=== PATIENT | female | born 1990 | race Caucasian/White ===

== ENCOUNTER → 2019-09-15 | Outpatient (CLI) | payer OTHER ==
[~2019-09-15] MED LIST: AMOX500 PO; HYDACE5 PO; IBUP800 PO; METR70GEL VAG; MUPI2TC TOP; OXYACE5T PO
== END | disposition home or self-care (01) ==
LOC: LAB SHORT 15:24 → LAB EV 15:24
DX: N39.0 Urinary tract infection, site not specified (principal)
CPT/HCPCS: 87077; 87086; 87186

== ENCOUNTER → 2020-01-23 | Outpatient (CLI) | payer OTHER ==
[2020-01-25 06:09] LABS: CHLAMYDIA TRACHOMATIS, NAA Negative (Negative); NEISSERIA GONORRHOEAE, NAA Negative (Negative)
== END ==
LOC: LAB 12:25 → LAB SHORT 12:25 → LAB FUT 01-22 11:40
PROVIDERS: Registered Nurse Community Health
DX: Z34.80 Encounter for supervision of other normal pregnancy, unspecified trimester (principal)
CPT/HCPCS: 87491; 87591

== ENCOUNTER → 2020-07-14 | Outpatient (CLI) | payer OTHER | LOC: LAB SHORT 13:54 → LAB UCHC 13:54 | DX: Z34.83 Encounter for supervision of other normal pregnancy, third trimester (principal); Z53.20 Procedure and treatment not carried out because of patient's decision for unspecified reasons | CPT/HCPCS: 87081; 87653 ==

== ENCOUNTER → 2023-07-03 | Outpatient (CLI) | payer OTHER ==
[~2023-07-03] MED LIST changes: +MAGCHL64ER; +PRENA1 TRUE CO1 EAC1 PO
[2023-07-03 17:10] LABS: Adenovirus F 40/41 Not Detected (NOT DETECT); Astrovirus Not Detected (NOT DETECT); Campylobacter Sp Not Detected (NOT DETECT); Cryptosporidium Not Detected (NOT DETECT); Cyclospora Cayetanensis Not Detected (NOT DETECT); E. Coli O157 Not Detected (NOT DETECT); Entamoeba Histolytica Not Detected (NOT DETECT); Enteroaggregative E. coli-EAEC Not Detected (NOT DETECT); Enteropathogenic E. coli-EPEC Not Detected (NOT DETECT); Enterotoxigenic E. coli-ETEC Not Detected (NOT DETECT); Giardia Lamblia Not Detected (NOT DETECT); Norovirus GI/GII Not Detected (NOT DETECT); Plesiomonas Shigelloides Not Detected (NOT DETECT); Rotavirus A Not Detected (NOT DETECT); Salmonella Sp Not Detected (NOT DETECT); Sapovirus Not Detected (NOT DETECT); Shiga Toxin-prod E. coli-STEC Not Detected (NOT DETECT); Shigella/Enteroin E. coli-EIEC Not Detected (NOT DETECT); Vibrio Cholerae Not Detected (NOT DETECT); Vibrio Sp Not Detected (NOT DETECT); Yersinia Enterocolitica Not Detected (NOT DETECT)
== END | disposition home or self-care (01) ==
LOC: LAB 14:07 → LAB SHORT 14:07
PROVIDERS: Nurse Practitioner Family
DX: R63.5 Abnormal weight gain (principal)
CPT/HCPCS: 87507

== ENCOUNTER → 2024-07-08 | Outpatient (CLI) | payer OTHER ==
[2024-07-08 12:50] LABS: Source, Urine Clean Catch
[2024-07-08 14:34] LABS: Appearance, Urine Clear (Clear); Bilirubin, Urine Neg (Neg); Blood, Urine Neg (Neg); Glucose Qualitative, Urine Neg (Neg); Ketones, Urine Neg (Neg); Leukocyte Esterase, Urine Neg (Neg); Nitrite, Urine Neg (Neg); Protein, Urine Neg (Neg); Urobilinogen, Urine NORM (Normal)
[2024-07-08 14:35] LABS: Color, Urine Pale Yellow (P-Yellow)
== END ==
LOC: LAB 12:48 → LAB SHORT 12:48
PROVIDERS: Registered Nurse Community Health
DX: Z34.91 Encounter for supervision of normal pregnancy, unspecified, first trimester (principal)
CPT/HCPCS: 81003; 87086

== ENCOUNTER → 2024-07-09 | Outpatient (CLI) | payer OTHER ==
[2024-07-09 14:36] LABS: BASOPHILS ABSOLUTE AUTO 0.03 K/mm3 (0.00-0.23); BASOPHILS PERCENT AUTO 1 % (0-2); EOSINOPHILS ABSOLUTE AUTO 0.07 K/mm3 (0.00-0.68); EOSINOPHILS PERCENT AUTO 1 % (0-6); Hematocrit 35.5 % (33.0-51.0); Hemoglobin 12.2 g/dL (11.5-16.0); IMMATURE GRAN ABSOLUTE AUTO 0.01 K/mm3 (0.00-0.10); IMMATURE GRAN PERCENT AUTO 0 % (0-1); LYMPHOCYTES ABSOLUTE AUTO 1.65 K/mm3 (0.84-5.20); LYMPHOCYTES PERCENT AUTO 25 % (21-46); MONOCYTES ABSOLUTE AUTO 0.27 K/mm3 (0.16-1.47); MONOCYTES PERCENT AUTO 4 % (4-13); Mean Corpuscular HGB 29.8 pg (26.0-34.0); Mean Corpuscular HGB Conc 34.4 g/dL (31.5-36.5); Mean Corpuscular Volume 87 fL (80-100); Mean Platelet Volume 9.4 fL (9.1-12.4); NEUTROPHILS PERCENT AUTO 69 % (41-73); Platelet Count 304 K/mm3 (150-400); RDW Coefficient Variation 12.3 % (11.7-14.2); RDW Standard Deviation 39.3 fL (35.1-46.3); White Blood Cell Count 6.53 K/mm3 (4.00-11.30)
[2024-07-11 08:16] LABS: HEPATITIS B SURFACE ANTIGEN Negative (Negative)
[2024-07-11 09:05] LABS: HIV 1,2 COMBO ANTIGEN/ANTIBODY Negative (Negative)
[2024-07-11 12:10] LABS: HEPATITIS C AB CIA INTERP Negative (Negative); HEPATITIS C ANTIBODY CIA INDEX <0.02 IV
[2024-07-11 20:17] LABS: APTIMA MEDIA TYPE Urine; C. TRACHOMATIS BY TMA Negative (Negative); N. GONORRHOEAE BY TMA Negative (Negative); SPECIMEN SOURCE Urine
== END | disposition home or self-care (01) ==
LOC: LAB 10:28 → LAB SHORT 10:28
PROVIDERS: Registered Nurse Community Health
DX: Z34.91 Encounter for supervision of normal pregnancy, unspecified, first trimester (principal)
CPT/HCPCS: 84443; 86803; 87340; 87389; 87491; 87591

== ENCOUNTER → 2024-08-15 | Outpatient (CLI) | payer OTHER ==
[2024-08-15 14:31] LABS: BASOPHILS ABSOLUTE AUTO 0.01 K/mm3 (0.00-0.23); BASOPHILS PERCENT AUTO 0 % (0-2); EOSINOPHILS ABSOLUTE AUTO 0.08 K/mm3 (0.00-0.68); EOSINOPHILS PERCENT AUTO 1 % (0-6); Hematocrit 33.8 % (33.0-51.0); Hemoglobin 11.9 g/dL (11.5-16.0); IMMATURE GRAN ABSOLUTE AUTO 0.03 K/mm3 (0.00-0.10); IMMATURE GRAN PERCENT AUTO 0 % (0-1); LYMPHOCYTES ABSOLUTE AUTO 1.64 K/mm3 (0.84-5.20); LYMPHOCYTES PERCENT AUTO 21 % (21-46); MONOCYTES ABSOLUTE AUTO 0.37 K/mm3 (0.16-1.47); MONOCYTES PERCENT AUTO 5 % (4-13); Mean Corpuscular HGB 30.2 pg (26.0-34.0); Mean Corpuscular HGB Conc 35.2 g/dL (31.5-36.5); Mean Corpuscular Volume 86 fL (80-100); Mean Platelet Volume 8.9 fL (9.1-12.4); NEUTROPHILS ABSOLUTE AUTO 5.77 K/mm3 (1.96-9.15); NEUTROPHILS PERCENT AUTO 73 % (41-73); Platelet Count 349 K/mm3 (150-400); RDW Coefficient Variation 12.6 % (11.7-14.2); RDW Standard Deviation 39.3 fL (35.1-46.3); Red Blood Cell Count 3.94 M/mm3 (3.80-5.20)
[2024-08-15 15:51] LABS: Percent Saturation 32.2 % (15.0-50.0)
== END | disposition home or self-care (01) ==
LOC: LAB 12:37 → LAB SHORT 12:37
PROVIDERS: Registered Nurse Community Health
DX: O99.012 Anemia complicating pregnancy, second trimester (principal)
CPT/HCPCS: 82728; 83540; 83550; 85025

== ENCOUNTER → 2024-11-11 | Outpatient (CLI) | payer OTHER ==
[2024-11-11 15:35] LABS: Hematocrit 31.5 % (33.0-51.0)
== END | disposition home or self-care (01) ==
LOC: LAB SHORT 14:39 → LAB 14:39
PROVIDERS: Registered Nurse Community Health
DX: Z34.93 Encounter for supervision of normal pregnancy, unspecified, third trimester (principal)
CPT/HCPCS: 82950; 85014; 85018

== ENCOUNTER → 2025-01-02 | Outpatient (CLI) | payer OTHER | LOC: LAB 14:59 → LAB SHORT 14:59 | DX: Z34.93 Encounter for supervision of normal pregnancy, unspecified, third trimester (principal) | CPT/HCPCS: 87081; 87150 ==

== ENCOUNTER 2025-01-20 02:06 | Inpatient (IN) | payer OTHER ==
[2025-01-20] VITALS (17 sets, daily range): BP systolic 109–149; BP diastolic 49–100
[~2025-01-20] VITALS: Ht 152.4 cm; Wt 81.3 kg
[2025-01-20] MEDS ORDERED: Azithromycin 500 MG in NS 250 ML IV SCH ×2 (03:05→03:15)
[2025-01-20] MEDS ORDERED: Lactated Ringer's 1,000 ML IV SCH (03:05)
[2025-01-20] MEDS ORDERED: CeFAZolin Sodium 2,000 MG in NS 100 ML IV SCH (03:05)
[2025-01-20] MEDS ORDERED: FERSU300 PO (03:15)
[2025-01-20] MEDS ORDERED: Metoclopramide HCl 5MG / ML 2ML Vial IV ONE ×2 (03:30→03:55)
[2025-01-20] MEDS ORDERED: Citric Acid/Sodium Citrate 30 ML BTL PO ONE (03:30)
[2025-01-20 03:32] LABS: BASOPHILS ABSOLUTE AUTO 0.02 K/mm3 (0.00-0.23); BASOPHILS PERCENT AUTO 0 % (0-2); EOSINOPHILS ABSOLUTE AUTO 0.05 K/mm3 (0.00-0.68); EOSINOPHILS PERCENT AUTO 1 % (0-6); Hematocrit 34.8 % (33.0-51.0); Hemoglobin 12.5 g/dL (11.5-16.0); IMMATURE GRAN ABSOLUTE AUTO 0.03 K/mm3 (0.00-0.10); IMMATURE GRAN PERCENT AUTO 0 % (0-1); LYMPHOCYTES ABSOLUTE AUTO 1.59 K/mm3 (0.84-5.20); LYMPHOCYTES PERCENT AUTO 15 % (21-46); MONOCYTES ABSOLUTE AUTO 0.51 K/mm3 (0.16-1.47); MONOCYTES PERCENT AUTO 5 % (4-13); Mean Corpuscular HGB 32.7 pg (26.0-34.0); Mean Corpuscular HGB Conc 35.9 g/dL (31.5-36.5); Mean Corpuscular Volume 91 fL (80-100); Mean Platelet Volume 8.9 fL (9.1-12.4); NEUTROPHILS ABSOLUTE AUTO 8.15 K/mm3 (1.96-9.15); NEUTROPHILS PERCENT AUTO 79 % (41-73); Platelet Count 262 K/mm3 (150-400); RDW Coefficient Variation 12.7 % (11.7-14.2); RDW Standard Deviation 42.2 fL (35.1-46.3); Red Blood Cell Count 3.82 M/mm3 (3.80-5.20); White Blood Cell Count 10.35 K/mm3 (4.00-11.30)
[2025-01-20] MEDS ORDERED: Metoclopramide HCl 5MG / ML 2ML Vial ONE (03:40)
[2025-01-20] MEDS ORDERED: Citric Acid/Sodium Citrate 30 ML BTL PO SCH (03:55)
[2025-01-20 04:05] LABS: Albumin, Blood 2.8 g/dL (3.4-5.0); Albumin/Globulin Ratio 0.7 (0.8-1.8); Bilirubin, Total 0.3 mg/dL (0.1-1.0); Bun/Creatinine Ratio 17.9 (12.0-20.0); Calcium, Blood 9.2 mg/dL (8.5-10.1); Creatinine, Blood 0.5 mg/dL (0.40-1.00); Globulin, Blood 3.8 g/dL (2.2-4.0); Potassium, Blood 3.5 mmol/L (3.5-5.5); Total Protein, Blood 6.6 g/dL (6.4-8.2)
[2025-01-20] MEDS ORDERED: ePHEDrine Sulfate 50 MG/ML 1ML Injection ONE (05:06)
[2025-01-20] MEDS ORDERED: Ondansetron HCl 2 MG / ML 2ML Vial ONE (05:14)
[2025-01-20] MEDS ORDERED: FentaNYL Citrate 50 MCG/ML 2 ML Injection IV PRN ×2 (05:50)
[2025-01-20] MEDS ORDERED: Albuterol 2.5 MG/3 ML VIAL INH PRN (05:50)
[2025-01-20] MEDS ORDERED: Droperidol 5 mg/2 ml Vial IV PRN (05:50)
[2025-01-20] MEDS ORDERED: HYDROmorphone HCl 0.5 MG/0.5 ML SYR IV PRN (05:50)
[2025-01-20] MEDS ORDERED: Morphine Sulfate 4 MG/1 ML Injection IV PRN (05:50)
[2025-01-20] MEDS ORDERED: Ondansetron HCl 2 MG / ML 2ML Vial IV PRN (05:50)
[2025-01-20] MEDS ORDERED: FentaNYL Citrate 50 MCG/ML 2 ML Injection ONE ×2 (05:51→06:02)
[2025-01-20] MEDS ORDERED: Scopolamine Hydrobromide Patch TOP SCH (05:55)
[2025-01-20] MEDS ORDERED: DiphenhydrAMINE HCl 50 MG/ML 1ML Vial ONE (05:57)
[2025-01-20] MEDS ORDERED: Morphine Sulfate/PF 1 MG/ML 10MLVIAL ONE (06:01)
[2025-01-20] MEDS ORDERED: Tranexamic Acid 100 ML IV ONE (06:05)
[2025-01-20] MEDS ORDERED: propofoL 0 ML IV ONE (06:20)
[2025-01-20] MEDS ORDERED: Bupivacaine 0.5% HCl 5 MG/ML 30MLVIAL ONE (06:22)
[2025-01-20] MEDS ORDERED: Meperidine HCl 50 MG/ML 1ML Injection IV PRN (06:45)
[2025-01-20] MEDS ORDERED: Lanolin Cream TOP PRN (07:50)
[2025-01-20] MEDS ORDERED: OxyCODONE HCL 5 MG TAB PO PRN ×2 (07:50→07:55)
[2025-01-20] MEDS ORDERED: Rho(D) Immune Globulin 300 MCG / SYR IM ONE (07:55)
[2025-01-20] MEDS ORDERED: Magnesium Hydroxide Conc 10 ML UDC PO PRN (07:55)
[2025-01-20] MEDS ORDERED: Simethicone 80 MG Chew PO PRN (07:55)
[2025-01-20] MEDS ORDERED: Acetaminophen 500 MG Tab PO PRN (07:55)
[2025-01-20] MEDS ORDERED: HydrOXYzine Pamoate 25 MG Cap PO PRN (08:00)
[2025-01-20] MEDS ORDERED: Ketorolac Tromethamine 30mg Vial IV SCH (08:00)
[2025-01-20] MEDS ORDERED: Docusate Sodium 100 MG Cap PO SCH (09:00)
[2025-01-20] MEDS ORDERED: Prenatal Vit/FE Fumarate/FA 1 Tab PO SCH (09:00)
[2025-01-20] MEDS ORDERED: Ibuprofen 400 MG Tab PO PRN (18:40)
[2025-01-21 00:03] VITALS: BP 118/58
[2025-01-21 06:30] LABS: BASOPHILS ABSOLUTE AUTO 0.02 K/mm3 (0.00-0.23); BASOPHILS PERCENT AUTO 0 % (0-2); EOSINOPHILS ABSOLUTE AUTO 0.04 K/mm3 (0.00-0.68); EOSINOPHILS PERCENT AUTO 0 % (0-6); Hemoglobin 10.4 g/dL (11.5-16.0); IMMATURE GRAN ABSOLUTE AUTO 0.03 K/mm3 (0.00-0.10); IMMATURE GRAN PERCENT AUTO 0 % (0-1); LYMPHOCYTES ABSOLUTE AUTO 1.63 K/mm3 (0.84-5.20); LYMPHOCYTES PERCENT AUTO 16 % (21-46); MONOCYTES ABSOLUTE AUTO 0.66 K/mm3 (0.16-1.47); MONOCYTES PERCENT AUTO 7 % (4-13); Mean Corpuscular HGB 32.3 pg (26.0-34.0); Mean Corpuscular HGB Conc 34.7 g/dL (31.5-36.5); Mean Corpuscular Volume 93 fL (80-100); Mean Platelet Volume 8.8 fL (9.1-12.4); NEUTROPHILS ABSOLUTE AUTO 7.82 K/mm3 (1.96-9.15); NEUTROPHILS PERCENT AUTO 77 % (41-73); Platelet Count 201 K/mm3 (150-400); RDW Coefficient Variation 13.1 % (11.7-14.2); RDW Standard Deviation 44.7 fL (35.1-46.3); Red Blood Cell Count 3.22 M/mm3 (3.80-5.20)
[2025-01-21 07:35] VITALS: BP 109/63
[2025-01-21 11:45] VITALS: BP 120/60
[2025-01-21] MEDS ORDERED: Amoxicillin/Clavulanate K 875 MG Tab PO SCH (12:40)
[2025-01-21 15:49] VITALS: BP 117/64
[2025-01-21 19:51] VITALS: BP 118/58
[2025-01-21 23:19] VITALS: BP 116/59
[2025-01-22 04:38] VITALS: BP 120/56
[2025-01-22 09:08] VITALS: BP 113/74
[2025-01-22] MEDS ORDERED: AMOCLA875 PO (11:15)
[2025-01-22] MEDS ORDERED: IBU800 M1 PO (11:16)
[2025-01-22] MEDS ORDERED: DOCU100 PO (11:17)
[2025-01-22] MEDS ORDERED: OXYC10TA19 PO (11:17)
[2025-01-22] MEDS ORDERED: Diflucan100 MG PO (11:18)
[2025-01-22] MEDS ORDERED: BISA10S PR (11:19)
[2025-01-22] MEDS ORDERED: ACET500 PO (11:20)
[2025-01-22 12:01] VITALS: BP 115/57
== END 2025-01-22 14:05 | disposition home or self-care (01) | DRG 788 ==
LOC: OBS 02:06 → BC 02:12 → OBS 02:58 → BC 03:03
PROVIDERS: ADMIT Family Medicine
PROC: 10D00Z1 Extraction of Products of Conception, Low, Open Approach (ICD-10-PCS; principal; 2025-01-20 03:30)
DX: O34.211 Maternal care for low transverse scar from previous cesarean delivery (principal); O42.02 Full-term premature rupture of membranes, onset of labor within 24 hours of rupture; O24.420 Gestational diabetes mellitus in childbirth, diet controlled; Z37.0 Single live birth; Z87.891 Personal history of nicotine dependence; G89.18 Other acute postprocedural pain; Z3A.38 38 weeks gestation of pregnancy
CPT/HCPCS: 36415; 59025; 80053; 81003; 82947; 85025; 86850; 86870; 86900; 86901; 86922; 87210; 99214; A9270; J1200; J1885; J2270; J2274; J2405; J2704; J2765; J3010; J7120